=== PATIENT | male | born 1960 | race Asian ===

== ENCOUNTER 2017-05-25 11:15 | Inpatient (IN) | payer BC ==
[2017-05-26] MEDS ORDERED: Heparin 10,000 UNITS/1 ML VIAL 30,000 UNITS in Sodium Chloride 0.9% 1,000 ML FS SCH (06:45)
[2017-05-26] MEDS ORDERED: CEFAZOLIN/Water 2 GM/20 ML SYRINGE ONE (06:55)
[2017-05-26] MEDS ORDERED: Midazolam HCl 2 mg/2 ml Vial ONE (07:04)
[2017-05-26] MEDS ORDERED: Nitroglycerin 2% Ointment 1 INCH/1 GM Packet ONE (07:05)
[2017-05-26] MEDS ORDERED: Fentanyl 250 MCG/5 ML VIAL ONE (07:22)
[2017-05-26] MEDS ORDERED: Midazolam HCl 5 mg/5 ml Vial ONE (07:22)
[2017-05-26] MEDS ORDERED: Insulin Regular 300 UNITS/3 ML VIAL ONE (09:49)
[2017-05-26] MEDS ORDERED: Phenylephrine 0.25% Nasal Spray 15 ML BOT ONE (11:04)
[2017-05-26] MEDS ORDERED: PHENYLEPHRINE-NS 100 MCG/ML 10 ML SYRINGE ONE ×2 (11:05→17:16)
--- NOTE | 2017-05-26 12:42 | OP ---
PREOPERATIVE DIAGNOSIS: Coronary artery disease. PROCEDURE: Coronary bypass graft x6, good quality LAUGHLIN to a 2 mm LAD, good quality radial artery is a sequential graft to the diagonal 1 and diagonal 2, both of which measured about 1.5, good quality saphenous vein to distal right coronary artery that was heavily diseased, thick wall extending onto t he orifice of the PDA which was about 1.25 mm, saphenous vein to a 1.5 mm OM1 and a 1.5 mm OM2. SURGEON: Dr. Miguel Haskins RECYCLING [employer]LECTIONS DRIVER: Hema Duncan M.D. TRANSFUSION: None. PROCEDURE IN DETAIL: After adequate anesthesia had been obtained, I performed a left radial artery h arvest after ensuring good collateral flow with plethysmography while Dr. Duncan performed an endovas cular vein harvest of the left greater saphenous vein. Following closure of the left arm wound a med aren sternotomy was performed. The right pleura was entered and then closed with Vicryl suture. Left internal mammary artery was then harvested and patient heparinized, the mammary divided distally and passed posterior to the thymus gland. It was treated with papaverine while aorta and right atrium w ere cannulated. Cardiopulmonary bypass was instituted, and vessels were inspected. The aorta was cr oss-clamped and a liter of [place] cardioplegic solution was given. Individually, the right coronar y artery was opened extending the incision onto the PDA orifice of the OM1 and OM2 were both opened a nd saphenous vein anastomosis all performed. Following this, the diagonal 1 was opened and a side-to -side anastomosis with the radial artery performed and then an end-to-side anastomosis completed to t he diagonal 2. LAUGHLIN to LAD was completed last, crossclamp was removed, partial occluding clamp place d, and 3 proximal anastomoses performed on the aortic root with vein graft and marked with rings. R adial artery was then anastomosed to the side of the OM2 vein graft about 2 cm from the aortic root. The patient was weaned from cardiopulmonary bypass, cannulas were removed, and protamine was given s ystemically and the aortic cannula was secured with a Prolene suture. Two mediastinal drains were pl aced and then the sternum was reapproximated with #7 interrupted wire using vancomycin paste on the s ternal edges, platelet-enriched blood, and platelet-poor plasma. Subcutaneous tissue and skin were c losed in layers.
[2017-05-26] MEDS ORDERED: Acetaminophen 325 MG TAB PO PRN (12:50)
[2017-05-26] MEDS ORDERED: Ondansetron HCl/PF 4 MG/2 ML Vial IVP PRN (12:50)
[2017-05-26] MEDS ORDERED: DOPamine 400 MG/D5W 250 ML 250 ML IVPB PRN (12:50)
[2017-05-26] MEDS ORDERED: Nitroglycerin 50 MG/250 ML BOT 250 ML IVPB PRN (12:50)
[2017-05-26] MEDS ORDERED: Phenylephrine 10 MG/NS 250 ML 250 ML IVPB PRN (12:50)
[2017-05-26] MEDS ORDERED: Bisacodyl 10 MG SUPP PR PRN (12:50)
[2017-05-26] MEDS ORDERED: Potassium Chloride 20 MEQ/100 ML PREMIX BAG IVPB PRN (12:50)
[2017-05-26] MEDS ORDERED: hydrALAZINE 20 MG/ML VIAL SLOW IVP PRN (12:50)
[2017-05-26] MEDS ORDERED: Fentanyl 100 MCG/2 ML VIAL SLOW IVP PRN (12:50)
[2017-05-26] MEDS ORDERED: Promethazine HCl 25 MG/ML VIAL IM PRN (12:50)
[2017-05-26] MEDS ORDERED: Guaifenesin DM 100-10/5 ML UDCUP PO PRN (12:50)
[2017-05-26] MEDS ORDERED: Bisacodyl 5 MG TAB PO PRN (12:50)
[2017-05-26] MEDS ORDERED: Post-Op Insulin Drip Protocol IVPB ONE (12:50)
[2017-05-26] MEDS ORDERED: Hetastarch 6% 500 ML 500 ML IVPB PRN (12:50)
[2017-05-26] MEDS ORDERED: Mag-Al 1200 mg/1200 mg/30 ML UDCUP PO PRN (12:50)
[2017-05-26 12:59] VITALS: BMI 32.1
[2017-05-26] MEDS ORDERED: Dextrose 50% Abboject 50 ML SYRINGE SLOW IVP PRN (13:04)
[2017-05-26] MEDS ORDERED: Insulin Regular 300 UNITS/3 ML VIAL SC PRN (13:04)
[2017-05-26] MEDS ORDERED: Dextrose 5% in Water 1,000 ML IV PRN (13:04)
[2017-05-26] MEDS: Fentanyl 100 MCG/2 ML VIAL SLOW IVP PRN ×3 (13:18→19:38)
[2017-05-26 13:23] LABS: Hematocrit 36.9 % (42.0-52.0); Mean Platelet Volume 9.5 fL (7.4-10.4); Red Blood Cell (RBC) Count 3.93 mill/uL (4.70-6.10); White Blood Cell (WBC) Count 31.2 thou/uL (4.8-10.8)
[2017-05-26 13:24] LABS: PTT 29.4 SEC (22.9-36.1); Prothrombin Time 16.9 SEC (12.0-14.7)
[2017-05-26 13:33] LABS: Modified Allen's Test NOT DONE; Oxyhemoglobin 93.2 % (94.0-97.0); Sodium 142 mmol/L (135-148); Vent YES
[2017-05-26 13:34] LABS: Mechanical Tidal Volume 600 ml; Mode SIMV/PSV; Pressure Support 10 cmH2O
[2017-05-26] MEDS: Sodium Chloride 0.9% 1,000 ML IV SCH ×2 (13:36→20:54)
--- NOTE | 2017-05-26 13:45 | RAD ---
AP VIEW CHEST: HISTORY: A 57-year-old with a history of open heart surgery. TECHNIQUE: AP view chest obtained. FINDINGS: Sternotomy wires seen. A right subclavian central line is seen in good position. Endotracheal tube is in good position. Lungs are well aerated. No evidence of acute intrathoracic abnormalities seen. IMPRESSION: Status post sternotomy changes. No acute intrathoracic abnormalities seen. POS: [facility]
[2017-05-26 13:46] LABS: Anion Gap 14 mmol/L (10-20); BUN (Urea Nitrogen) 15 mg/dL (8.4-25.7); Calc. Creatinine Clearance 112 mL/min (70-130); Calcium 7.7 mg/dL (7.8-10.44); Carbon Dioxide 21 mmol/L (22-29); Chloride 110 mmol/L (98-107); Estimated GFR-MDRD 71
[2017-05-26 13:47] LABS: Band 8 % (5-11); Neutrophil 68 % (42-75)
[2017-05-26] MEDS: CEFAZOLIN/Water 2 GM/20 ML SYRINGE SLOW IVP SCH ×2 (14:06→23:06)
[2017-05-26 15:50] LABS: Oxyhemoglobin 94.7 % (94.0-97.0); Sodium 141 mmol/L (135-148)
[2017-05-26 17:12] LABS: Hematocrit 35.8 % (42.0-52.0)
[2017-05-26] MEDS ORDERED: Propofol 200 MG/20 ML VIAL ONE (17:16)
[2017-05-26] MEDS ORDERED: Calcium Chloride 1 GM/10 ML Abboject SYRINGE ONE (17:16)
[2017-05-26] MEDS ORDERED: Albumin 25% 25 GM/100 ML BOT ONE (17:16)
[2017-05-26] MEDS ORDERED: Papaverine 60 MG/2 ML VIAL ONE (17:16)
[2017-05-26] MEDS ORDERED: Cardioplegic Soln 1,000 ML BAG ONE (17:16)
[2017-05-26] MEDS ORDERED: Heparin 30,000 units/30 ml VIAL ONE (17:16)
[2017-05-26] MEDS ORDERED: Thrombin 5000 UNITS/5 ML VIAL ONE (17:16)
[2017-05-26] MEDS ORDERED: Potassium Chloride 60 MEQ/30 ML VIAL ONE (17:16)
[2017-05-26] MEDS ORDERED: Vecuronium 10 MG VIAL ONE (17:16)
[2017-05-26] MEDS ORDERED: Aminocaproic Acid 5 GM/20 ML VIAL ONE (17:16)
[2017-05-26] MEDS ORDERED: DOPamine 400 MG/10 ML VIAL ONE (17:16)
[2017-05-26] MEDS ORDERED: Sodium Bicarb 50 MEQ/50 ML Abboject 8.4% SYRINGE ONE (17:16)
[2017-05-26] MEDS ORDERED: Lidocaine 2% PF 100 mg/5 ml Syringe ONE (17:16)
[2017-05-26] MEDS ORDERED: Magnesium 5 GM/10 ML VIAL ONE (17:16)
[2017-05-26] MEDS ORDERED: Mannitol 12.5 GM/50 ML ONE (17:16)
[2017-05-26] MEDS ORDERED: Protamine Sulfate 250 MG/25 ML VIAL ONE (17:16)
[2017-05-26] MEDS ORDERED: Heparin 1,000 UNITS/500 ML BAG (ARTLINE) ONE (17:16)
[2017-05-26] MEDS: Ketorolac Tromethamine 30 MG/ML VIAL IVP SCH ×2 (17:21→23:05)
[2017-05-26 17:45] LABS: Modified Allen's Test NOT DONE
[2017-05-26 17:46] LABS: Mode PSV; Pressure Support 10 cmH2O; Vent YES
[2017-05-26] MEDS: HYDROcodone/Acetaminophen 5/325 mg Tablet PO PRN ×2 (18:45→23:26)
--- NOTE | 2017-05-26 18:45 | CON ---
DATE OF CONSULTATION: 05/26/2017 HISTORY: Patient is a 57-year-old gentleman with history of coronary artery disease who presents fol [facility] coronary artery bypass graft surgery. The patient has a previous history of hypertension and a long history of tobacco abuse. The patient recently presented with chest discomfort. He underwent a cardiac catheterization which revealed him to have severe 3-vessel coronary artery disease. Today , the patient underwent coronary artery bypass graft surgery x6. A LAUGHLIN was placed to the LAD, radia l graft to the first and second diagonal branch, another saphenous vein graft was also placed to the right coronary artery, OM1 and OM2. PHYSICAL EXAMINATION: GENERAL: The patient is intubated, unresponsive. VITAL SIGNS: Blood pressure 101/54. NECK: Showed no jugular venous distention. LUNGS: Coarse breath sounds bilateral. HEART: Regular rate and rhythm, normal S1, S2. ABDOMEN: Distended. EXTREMITIES: Showed trace edema. LABORATORY RESULTS: White blood count was 31.2, hemoglobin 12.1, hematocrit 36.9 and his platelets a re 189. Sodium is 140, potassium 5.4, chloride 110, bicarbonate 21, BUN 15, creatinine is 1.07. His EKG reveals normal sinus rhythm, normal ECG. IMPRESSION: 1. Status post coronary artery bypass surgery. 2. Hypertension. 3. Tobacco abuse. This gentleman is status post coronary artery bypass graft surgery x6, the patient will need CONNIE inhi bitor therapy, lipid lowering medication. There was no evidence of ischemia on the patient's postope rative ECG. We will follow this patient with you through his hospitalization in my office.
[2017-05-26] MEDS ORDERED: Acetaminophen 1,000 MG in Premix Bag 1 BAG IVPB PRN (19:26)
[2017-05-26] MEDS: Famotidine/PF 20 mg/2ml Vial SLOW IVP SCH (20:52)
[2017-05-26] MEDS: Gabapentin 300 MG CAP PO SCH (20:52)
[2017-05-26] MEDS ORDERED: Atorvastatin Calcium 20 MG TAB PO SCH (21:00)
[2017-05-27] MEDS: HYDROcodone/Acetaminophen 5/325 mg Tablet PO PRN ×4 (04:23→18:41)
[2017-05-27 04:41] LABS: #Lymphocytes 2.1 thou/uL (1.20-3.40); #Monocytes 1.1 thou/uL (0.11-0.59); #Neutrophils 10.2 thou/uL (1.40-6.50); %Basophils 0.1 % (0.0-1.0); %Eosinophils 0.1 % (0.0-10.0); %Lymphocytes 15.8 % (21.0-51.0); %Monocytes 8.3 % (0.0-10.0); Hematocrit 34.6 % (42.0-52.0); Mean Platelet Volume 8.9 fL (7.4-10.4); Red Blood Cell (RBC) Count 3.65 mill/uL (4.70-6.10); White Blood Cell (WBC) Count 13.5 thou/uL (4.8-10.8)
[2017-05-27 04:46] LABS: Anion Gap 9 mmol/L (10-20); BUN (Urea Nitrogen) 17 mg/dL (8.4-25.7); Calc. Creatinine Clearance 115 mL/min (70-130); Calcium 7.9 mg/dL (7.8-10.44); Carbon Dioxide 26 mmol/L (22-29); Chloride 109 mmol/L (98-107); Estimated GFR-MDRD 73
[2017-05-27] MEDS: Gabapentin 300 MG CAP PO SCH ×3 (06:10→22:04)
[2017-05-27] MEDS: Ketorolac Tromethamine 30 MG/ML VIAL IVP SCH ×4 (06:10→23:45)
[2017-05-27] MEDS: CEFAZOLIN/Water 2 GM/20 ML SYRINGE SLOW IVP SCH (06:10)
--- NOTE | 2017-05-27 07:49 | RAD ---
AP VIEW CHEST: Date: 05/27/17 HISTORY: Status post multiple cardiac bypass. FINDINGS: Comparison made to previous exam from 05/26/17. AP view of chest demonstrates interval extubation of the patient. Again, a right subclavian central l ine is seen. EKG leads seen over the chest. Some moderate degree of pulmonary vascular congestion is seen, slightly increased compared to the previous exam. There are some increasing air space opacities in the lung bases concerning for developing pulmonary edema. There is some loss of the left lung hem idiaphragm interface. IMPRESSION: 1. Interval extubation of the patient. 2. Mild increased pulmonary vascular congestion and air space opacities in the lung bases. POS: [facility]
[2017-05-27] MEDS: Famotidine/PF 20 mg/2ml Vial SLOW IVP SCH (08:54)
[2017-05-27] MEDS ORDERED: Aspirin 325 MG TAB PO SCH (09:00)
[2017-05-27] MEDS ORDERED: Furosemide 40 MG/4 ML VIAL SLOW IVP SCH (09:30)
[2017-05-27] MEDS ORDERED: Insulin Detemir 100 UNITS/ML 14 UNITS in Pre-Filled Syringe 1 EACH SC SCH ×2 (10:00→13:30)
[2017-05-27] MEDS: Sodium Chloride 0.9% 1,000 ML IV SCH (11:50)
[2017-05-27] MEDS ORDERED: Milk Of Magnesia 30 ML UDCUP PO PRN (15:17)
[2017-05-27] MEDS ORDERED: Nitroglycerin 0.4 MG TAB 1 EACH SL PRN (15:17)
[2017-05-27] MEDS ORDERED: Acetaminophen 325 MG TAB PO PRN (15:17)
[2017-05-27] MEDS ORDERED: Mineral Oil ENEMA PR PRN (15:17)
[2017-05-27] MEDS ORDERED: Zolpidem Tartrate 5 MG TAB PO PRN (15:17)
[2017-05-27] MEDS ORDERED: diphenhydrAMINE 25 MG CAP PO PRN (15:17)
[2017-05-27] MEDS ORDERED: Bisacodyl 10 MG SUPP PR PRN (15:17)
[2017-05-27] MEDS ORDERED: Mag-Al 1200 mg/1200 mg/30 ML UDCUP PO PRN (15:17)
[2017-05-27] MEDS ORDERED: Guaifenesin DM 100-10/5 ML UDCUP PO PRN (15:17)
[2017-05-27] MEDS ORDERED: Promethazine HCl 25 MG/ML VIAL IM PRN (15:17)
[2017-05-27] MEDS ORDERED: Artificial Tear Sol 15 ML BOT EA EYE PRN (15:17)
[2017-05-27] MEDS ORDERED: Ondansetron HCl/PF 4 MG/2 ML Vial IVP PRN (15:17)
[2017-05-27] MEDS ORDERED: Bisacodyl 5 MG TAB PO PRN (15:17)
[2017-05-27] MEDS ORDERED: Fentanyl 100 MCG/2 ML VIAL SLOW IVP PRN ×2 (15:17)
[2017-05-27] MEDS ORDERED: HYDROcodone/Acetaminophen 5/325 mg Tablet PO PRN (15:17)
[2017-05-27] MEDS: Famotidine 20 MG TAB PO SCH (20:36)
[2017-05-27] MEDS: Metoprolol Tartrate 25 MG TAB PO SCH (20:36)
[2017-05-27] MEDS: Atorvastatin Calcium 20 MG TAB PO SCH (20:37)
[2017-05-28] MEDS: HYDROcodone/Acetaminophen 5/325 mg Tablet PO PRN ×3 (03:35→21:46)
[2017-05-28] MEDS: Ketorolac Tromethamine 30 MG/ML VIAL IVP SCH ×3 (05:06→18:05)
[2017-05-28] MEDS: Gabapentin 300 MG CAP PO SCH ×3 (05:06→20:58)
[2017-05-28] MEDS ORDERED: Furosemide 40 MG/4 ML VIAL SLOW IVP SCH (08:30)
[2017-05-28] MEDS: Metoprolol Tartrate 25 MG TAB PO SCH ×2 (09:06→20:58)
[2017-05-28] MEDS: Potassium Chloride 20 MEQ TAB PO SCH (09:06)
[2017-05-28] MEDS: Furosemide 40 MG TAB PO SCH (09:06)
[2017-05-28] MEDS: Famotidine 20 MG TAB PO SCH ×2 (09:06→20:58)
[2017-05-28] MEDS: Aspirin 325 mg Enteric Coated Tablet PO SCH (09:06)
[2017-05-28] MEDS: Atorvastatin Calcium 20 MG TAB PO SCH (20:58)
[2017-05-29] MEDS: Ketorolac Tromethamine 30 MG/ML VIAL IVP SCH ×3 (00:40→12:20)
[2017-05-29] MEDS: Gabapentin 300 MG CAP PO SCH ×2 (05:42→14:52)
[2017-05-29] MEDS: Furosemide 40 MG TAB PO SCH (09:13)
[2017-05-29] MEDS: Potassium Chloride 20 MEQ TAB PO SCH (09:13)
[2017-05-29] MEDS: Aspirin 325 mg Enteric Coated Tablet PO SCH (09:13)
[2017-05-29] MEDS: HYDROcodone/Acetaminophen 5/325 mg Tablet PO PRN (09:13)
[2017-05-29] MEDS: Metoprolol Tartrate 25 MG TAB PO SCH (09:15)
[2017-05-29] MEDS: Famotidine 20 MG TAB PO SCH (09:17)
[2017-05-29 12:20] VITALS: TEMP 97.7
--- NOTE | 2017-05-29 12:24 | EKG ---
Test Reason : POST CABG Blood Pressure : / mmHG Vent. Rate : 078 BPM Atrial Rate : 078 BPM P-R Int : 160 ms QRS Dur : 094 ms QT Int : 420 ms P-R-T Axes : 051 015 011 degrees QTc Int : 478 ms Normal sinus rhythm Normal ECG No previous ECGs available Confirmed by ASIA CHOUDHURY ([id number]) on 05/29/2017 12:23:48 PM Referred By: TAMANNA Confirmed By:ASIA CHOUDHURY
[2017-05-29 12:37] VITALS: BP 150/72
--- NOTE | 2017-05-29 18:45 | DIS ---
REASON FOR ADMISSION: Coronary artery bypass surgery. CLINICAL RESUME: The patient is a 57-year-old male with history of chest discomfort followed by abnormal stress test and cardiac catheterization, which demonstrated severe 3-vessel disease with normal left ventricular function. He was referred for coronary artery bypass surgery and on 05/26/2017 underwent coronary artery bypass grafting x6 by Dr. Haskins with left internal mammary artery to LAD, left radial artery in sequence to first and second diagonals, and separate reversed greater saphenous veins to the distal RCA, first OM, and second OM. See operative report for details. He received no blood products. His postoperative course has been unremarkable, and as of today, he was considered stable for discharge. Follow up were arranged in our office in 2 weeks or sooner p.r.n. ACTIVITY: Light with restrictions on driving and heavy lifting at this time. DIET: Cardiac prudent. WOUND CARE: As instructed. DISCHARGE MEDICATIONS: He is to resume his home metoprolol tartrate 50 mg daily. He is to increase his home Ecotrin from 81 mg daily to 324 mg daily. NEW MEDICATIONS: Lipitor 40 mg q.p.m., Neurontin 300 mg every 8 hours, and [place] 5/325 mg 1-2 every 4 to 6 hours p.r.n. MTDD
[2017-05-30 15:19] LABS: Oxyhemoglobin 96.4 % (94.0-97.0); Sodium 140 mmol/L (135-148)
[2017-05-30 15:22] LABS: Oxyhemoglobin 96.4 % (94.0-97.0); Sodium 142 mmol/L (135-148)
[2017-05-30 15:22] LABS: Base Excess -0.7 mEq/L (0 (+/- 2.5)); O2 Content (venous) 11.2 VOL% (12.5-17.5)
[2017-05-31 08:12] LABS: Mode OR ABG; Vent YES
[2017-05-31 08:13] LABS: Mode OR ABG; Vent YES
[2017-05-31 08:45] LABS: Oxyhemoglobin 96.7 % (94.0-97.0); Sodium 135 mmol/L (135-148)
[2017-05-31 08:46] LABS: Mode OR ABG; Vent YES
== END 2017-05-29 15:05 | disposition home or self-care (01) | DRG 236 ==
LOC: SURG A 05-26 05:50 → CCU 05-26 12:33 → 2NO 05-27 21:44
PROVIDERS: ADMIT Thoracic Surgery (Cardiothoracic Vascular Surgery); ATTEND Thoracic Surgery (Cardiothoracic Vascular Surgery)
PROC: 02100Z9 Bypass Coronary Artery, One Artery from Left Internal Mammary, Open Approach (ICD-10-PCS; principal; 2017-05-26)
PROC: 021209W Bypass Coronary Artery, Three Arteries from Aorta with Autologous Venous Tissue, Open Approach (ICD-10-PCS; 2017-05-26)
PROC: 02110AW Bypass Coronary Artery, Two Arteries from Aorta with Autologous Arterial Tissue, Open Approach (ICD-10-PCS; 2017-05-26)
PROC: 06BQ3ZZ Excision of Left Saphenous Vein, Percutaneous Approach (ICD-10-PCS; 2017-05-26)
PROC: 03BC0ZZ Excision of Left Radial Artery, Open Approach (ICD-10-PCS; 2017-05-26)
PROC: 5A1221Z Performance of Cardiac Output, Continuous (ICD-10-PCS; 2017-05-26)
DX: I25.10 Atherosclerotic heart disease of native coronary artery without angina pectoris (principal); E78.5 Hyperlipidemia, unspecified; F17.210 Nicotine dependence, cigarettes, uncomplicated; I10 Essential (primary) hypertension
CPT/HCPCS: 36416; 71010; 80048; 82805; 85025; 85610; 85730; 93005; 93010; 93798; 94002; 94150; J0131; J1265; J1642; J1644; J1815; J1885; J1940; J2001; J2150; J2250; J2405; J2440; J2704; J2720; J3010; J3370; J3475; J3480; J7050; P9045; P9047; S0017; S0028

== ENCOUNTER 2017-05-25 11:51 | Outpatient (CLI) | payer BC ==
[2017-05-25 12:40] LABS: #Basophils 0.1 thou/uL (0.0-0.2); #Eosinphils 0.1 thou/uL (0.0-0.7); #Lymphocytes 3.2 thou/uL (1.20-3.40); #Monocytes 0.5 thou/uL (0.11-0.59); #Neutrophils 6.4 thou/uL (1.40-6.50); %Eosinophils 0.9 % (0.0-10.0); %Monocytes 4.8 % (0.0-10.0); Hematocrit 49.5 % (42.0-52.0); Mean Platelet Volume 9.2 fL (7.4-10.4); Red Blood Cell (RBC) Count 5.33 mill/uL (4.70-6.10); White Blood Cell (WBC) Count 10.2 thou/uL (4.8-10.8)
[2017-05-25 12:53] LABS: Anion Gap 14 mmol/L (10-20); BUN (Urea Nitrogen) 12 mg/dL (8.4-25.7); Calc. Creatinine Clearance 0 mL/min (70-130); Carbon Dioxide 25 mmol/L (22-29); Chloride 102 mmol/L (98-107); Estimated GFR-MDRD 76
== END 2017-05-25 11:52 | disposition home or self-care (01) ==
LOC: LABBT 11:51
PROVIDERS: ATTEND Thoracic Surgery (Cardiothoracic Vascular Surgery)
DX: Z01.812 Encounter for preprocedural laboratory examination (principal); I25.10 Atherosclerotic heart disease of native coronary artery without angina pectoris
CPT/HCPCS: 80048; 85025; 86850; 86900; 86901